=== PATIENT | female | born 2000 | race Two or more races ===

== ENCOUNTER 2022-03-02 20:51 | Emergency (ER) | payer SELFPAY ==
[~2022-03-02] VITALS: Ht 167.6 cm; Wt 72.0 kg
[2022-03-02 22:17] LABS: Basophils # (auto) 0 10 ^3/uL (0-0.2); Basophils % (auto) 0.5 % (0.0-2.0); Eosinophils # (auto) 0.3 10 ^3/uL (0-0.8); Eosinophils % (auto) 3.6 % (0.0-7.0); Hematocrit 46.5 % (36.0-46.0); Hemoglobin 15.1 g/dL (12.2-16.2); Lymphocytes # (auto) 2.6 10 ^3/uL (0.4-5.4); Lymphocytes % (auto) 27.4 % (10.0-50.0); Mean Corpuscular Hemoglobin 29.8 pg (28.0-32.0); Mean Corpuscular Hgb Conc. 32.4 g/dL (32.0-36.0); Mean Corpuscular Volume 91.8 fL (80.0-100.0); Monocytes # (auto) 0.8 10 ^3/uL (0-1.3); Monocytes % (auto) 8.3 % (0.0-12.0); Neutrophils # (auto) 5.6 10 ^3/uL (1.6-8.6); Neutrophils % (auto) 60.2 % (37.0-80.0); Nucleated Red Blood Cells % 0.1 %; Red Blood Cells 5.07 10^6/uL (4.0-5.20); Red Cell Distribution Width 14.3 % (11.8-14.3); White Blood Cell 9.4 10^3/uL (4.4-10.8)
[2022-03-02 22:40] LABS: Albumin 4.1 g/dL (3.4-5.0); BUN/Creatinine Ratio 14.9; Calcium 8.8 mg/dL (8.5-10.1); Potassium 4.2 mmol/L (3.5-5.1)
[2022-03-02 22:43] LABS: Bilirubin, Total 0.3 mg/dL (0.2-1.0); Total Protein 7.9 g/dL (6.4-8.2)
[2022-03-02 22:46] LABS: Partial Thromboplastin Time 31.7 sec (24.6-33.4)
[2022-03-02 23:04] LABS: Urine Bacteria NONE SEEN /hpf (None Seen); Urine Blood 3+ /uL (Negative); Urine Mucus FEW (None Seen); Urine Specific Gravity 1.023 (1.001-1.035); Urine WBC 30 /hpf (0 - 5); Urine WBC Clumps PRESENT /hpf (None Seen)
[2022-03-03] MEDS ORDERED: CEPH-322 PO (00:09)
[2022-03-03 01:11] VITALS: BP 125/80
== END 2022-03-03 01:13 | disposition home or self-care (01) ==
LOC: ER 20:51
DX: N30.00 Acute cystitis without hematuria (principal); N93.8 Other specified abnormal uterine and vaginal bleeding; Z91.018 Allergy to other foods
CPT/HCPCS: 36415; 80053; 81001; 81025; 84702; 85025; 85610; 85730; 86850; 86900; 86901

== ENCOUNTER 2022-04-16 22:14 | Emergency (ER) | payer SELFPAY ==
[~2022-04-16] VITALS: Ht 167.6 cm; Wt 76.0 kg
[~2022-04-16 22:14] MED LIST: CEPH-322 PO
[2022-04-17 00:50] VITALS: BP 131/93
== END 2022-04-16 23:27 | disposition left against medical advice (07) ==
LOC: ER 22:16
DX: N89.8 Other specified noninflammatory disorders of vagina (principal); Z20.2 Contact with and (suspected) exposure to infections with a predominantly sexual mode of transmission; Z53.21 Procedure and treatment not carried out due to patient leaving prior to being seen by health care provider

== ENCOUNTER 2024-02-18 12:01 | Emergency (ER) | payer MEDICAID ==
[~2024-02-18] VITALS: Ht 167.6 cm; Wt 81.4 kg
[~2024-02-18 12:01] MED LIST changes: -CEPH-322 PO; +CEPH250C PO; +SULF800T23 PO
[2024-02-18] MEDS ORDERED: IBUP-1456 PO (13:07)
[2024-02-18 13:26] VITALS: BP 117/75; PULSE 107; RESP 16; TEMP 98.4; O2SAT 98
== END 2024-02-18 13:29 | disposition home or self-care (01) ==
LOC: ER 12:05
DX: S93.402A Sprain of unspecified ligament of left ankle, initial encounter (principal); F15.10 Other stimulant abuse, uncomplicated; Z91.018 Allergy to other foods; W18.30XA Fall on same level, unspecified, initial encounter; Y93.89 Activity, other specified; Y92.89 Other specified places as the place of occurrence of the external cause; Y99.8 Other external cause status
CPT/HCPCS: 73610